=== PATIENT | male | born 1960 | race Caucasian/White ===

== ENCOUNTER 2016-08-20 18:35 | Emergency (ER) | payer OTHER ==
--- NOTE | ~2016-08-20 | CR72 ---
[facility]. [facility] A Service of [facility] & [facility] [place] RADIOLOGY TEXT RESULTS PATIENT: KEITH STACK LOCATION: SED : 60 UNIT #: [id number] AGE: [address]: Beni Norman MD SEX: M ORDER DR: [id number] [place] [id number] E MR#: [id number] Acc #: [id number] NAME: KEITH STACK : 1960 SEX: M STUDY DATE/TIME: 08/20/2016 18:54 UNIT: SED ROOM: STUDY DESCRIPTION: CR Chest Single View Portable Attending Physician: Beni Norman M.D. Ordering Physician: Gael Mckeon M.D. Primary Care Physician: Macario Neil M.D. MEDICAL IMAGING REPORT This report is preliminary unless electronic signature is present. EXAM Portable chest HISTORY Shortness of air and cough since yesterday. FINDINGS There are extensive coarse interstitial infiltrates bilaterally, suggesting chronic interstitial scarring. Old bilateral healed rib fractures. Cardiac size and pulmonary vascularity are normal. IMPRESSION 1. No change compared to 08/11/2016. 2. Extensive coarse bilateral interstitial infiltrates suggesting chronic interstitial scarring. No new focal infiltrates. 1. Dictated by... Chang Martins M.D. THIS IS AN ELECTRONICALLY VERIFIED REPORT Chang Martins M.D. at 08/21/2016 3:14 PM MICHELLE/doreen TD: 08/21/2016 07:58 JOB #: [id number] MEDICAL IMAGING REPORT
--- NOTE | ~2016-08-20 | EKG ---
PATIENT: KEITH STACK UNIT #: [id number] Ventricular Rate: 81 BPM Atrial Rate: 81 BPM P-R Interval: 154 ms QRS Duration: 84 ms Q-T Interval: 380 ms QTC Calculation(Bezet): 441 ms P Benton: 62 degrees Calculated R Benton: 9 degrees Calculated T Benton: 50 degrees Diagnosis Line: Normal sinus rhythm Diagnosis Line: Normal ECG Diagnosis Line: When compared with ECG of 11-AUG-2016 16:55, Diagnosis Line: No significant change was found Diagnosis Line: Confirmed by AGUEDA WEINSTEIN MD ([id number]) on 08/21/2016 Diagnosis Line: 6:03:32 PM INTERPRETING MD: JS HOUGH
[~2016-08-20 18:35] MED LIST: APIDRA (NF100 UNITS/; HUMALOG100 UNIT/2; INSULIN PUMP; KEFLEX500 M1 PO; KEFLEX500 MG PO; LEVAQUIN PO; LEVEMIR100 UNITS/; LIPITOR; LISINOPRIL; LOPRESSOR; MORPHINE SULFAT15 MG PO; PERCOCET 10/31 UDTA1 PO; XARELTO10 MG
[2016-08-20 19:08] LABS: BASOPHIL# 0.1 X10e3 (0-0.3); BASOPHIL% 0.6 % (0-2.5); EOSINOPHIL# 0.1 X10e3 (0-0.7); EOSINOPHIL% 0.6 % (0.0-7.0); HEMATOCRIT 32.7 % (38.0-50.0); HEMOGLOBIN 10.4 gm/dL (13.0-16.0); LYMPHOCYTE# 1.3 X10e3 (1.0-3.5); LYMPHOCYTE% 9.9 % (17.0-45.0); MEAN CELL VOLUME 83.4 FL (83-96); MEAN CORPUSCULAR HEMOGLOBIN 26.6 PG (28-34); MEAN CORPUSCULAR HGB CONC 31.9 g/dL (30-36); MEAN PLATELET VOLUME 7.2 FL (6.5-11.5); NEUTROPHIL# 10.3 X10e3 (1.5-7.1); NEUTROPHIL% 80.9 % (40-75); PLATELET COUNT 471 X10e3 (140-420); RED BLOOD COUNT 3.92 X10e (3.90-5.60); RED CELL DISTRIBUTION WIDTH 16.1 % (11.0-15.5); WHITE BLOOD COUNT 12.8 X10e3 (4.0-10.5)
[2016-08-20 19:09] LABS: DIFF IND NO
[2016-08-20 19:17] LABS: PROTHROMBIN TIME (PATIENT) 22.6 SECONDS (9.5-12.4)
[2016-08-20 19:25] LABS: PARTIAL THROMBOPLASTIN TIME 34.9 SECONDS (25.6-38.1)
[2016-08-20 19:29] LABS: ALBUMIN SERUM 3.4 g/dL (3.5-5.0); ALKALINE PHOSPHATASE 84 U/L (32-92); ALT (SGPT) 14 U/L (10-40); AST (SGOT) 18 U/L (10-42); BLOOD UREA NITROGEN 22 mg/dL (9-23); CALCIUM SERUM 8.7 mg/dL (8.4-10.2); CARBON DIOXIDE 30 mmol/L (22-31); CHLORIDE 102 mmol/L (100-111); CREATININE SERUM 1.1 mg/dL (0.6-1.4); GLOM FILT RATE Estimated ABOVE60 mL/min (>60); POTASSIUM 4.5 mmol/L (3.5-5.1); PROTEIN TOTAL SERUM 7.4 g/dL (6.0-8.3); SODIUM 138 mmol/L (135-145)
[2016-08-20 19:30] LABS: BILIRUBIN, DIRECT <0.1 mg/dL (0.0-0.2); BILIRUBIN,TOTAL <0.1 mg/dL (0.2-2.0); GLUCOSE FASTING 35 mg/dL (70-110)
[2016-08-20 19:53] LABS: POC - CKMB 1.2 ng/mL (0.0-7.9); POC - MYOGLOBIN 95.5 ng/mL (0.0-169.0)
[2016-08-20 19:54] LABS: POC - TROPONIN <0.05 ng/mL (<=0.05)
[2016-08-20 21:28] LABS: POC - CKMB 2.2 ng/mL (0.0-7.9); POC - TROPONIN <0.05 ng/mL (<=0.05)
[2016-08-20] MEDS ORDERED: LASIX PO (21:32)
[2016-08-20] MEDS ORDERED: DELTASONE20 MG PO (21:32)
== END 2016-08-20 21:32 | disposition home or self-care (01) ==
LOC: SED 18:35
PROVIDERS: Emergency Medicine
DX: R06.02 Shortness of breath (principal); J44.9 Chronic obstructive pulmonary disease, unspecified; Z88.2 Allergy status to sulfonamides; Z88.6 Allergy status to analgesic agent; Z79.899 Other long term (current) drug therapy
CPT/HCPCS: 36415; 71010; 80048; 80076; 82553; 82947; 83874; 83880; 84484; 85025; 85610; 85730; 93005; 96374; 96375; 99284; J1100; J1940

== ENCOUNTER 2016-09-30 20:51 | Emergency (ER) | payer OTHER ==
[~2016-09-30 20:51] MED LIST changes: +DELTASONE20 MG PO; +LASIX PO
== END 2016-09-30 21:16 | disposition home or self-care (01) ==
LOC: SED 20:51
DX: R10.13 Epigastric pain (principal); E11.9 Type 2 diabetes mellitus without complications; J44.9 Chronic obstructive pulmonary disease, unspecified; F17.200 Nicotine dependence, unspecified, uncomplicated
CPT/HCPCS: 99283